=== PATIENT | male | born 1995 | race African-American/Black ===

== ENCOUNTER 2019-01-23 23:47 | Emergency (ER) | payer SELFPAY ==
[~2019-01-23] VITALS: Ht 172.7 cm; Wt 75.1 kg
[2019-01-24] MEDS ORDERED: IBUPROFEN 600MG TABLET PO ONE (04:15)
[2019-01-24] MEDS ORDERED: TRAMADOL 50MG TABLET PO ONE (04:15)
[2019-01-24 04:36] VITALS: BP 136/83
== END 2019-01-24 04:44 | disposition home or self-care (01) ==
LOC: ER 23:47
DX: S00.531A Contusion of lip, initial encounter (principal); M54.5 Low back pain; R10.9 Unspecified abdominal pain; F12.10 Cannabis abuse, uncomplicated; Z98.890 Other specified postprocedural states; V49.40XA Driver injured in collision with unspecified motor vehicles in traffic accident, initial encounter; Y93.89 Activity, other specified; Y92.89 Other specified places as the place of occurrence of the external cause; Y99.8 Other external cause status
CPT/HCPCS: 99283